=== PATIENT | female | born 1990 | race Caucasian/White ===

== ENCOUNTER 2017-04-20 15:21 | Day surgery (SDC) | payer OTHER ==
[2017-04-20] VITALS (19 sets, daily range): BP systolic 56–112; BP diastolic 31–62; PULSE 94–126; RESP 10–20; Ht 157.5 cm; Wt 65.9 kg
[~2017-04-20] VITALS: Ht 157.5 cm; Wt 65.9 kg
[~2017-04-20 15:21] MED LIST: CLINDAMYCIN 600 MG/50 ML D5W IVPB IVPB ONE
[2017-04-20] MEDS ORDERED: PROPOFOL 20 ML ONE (17:28)
[2017-04-20] MEDS ORDERED: ROCURONIUM 50 MG INJ ONE (17:28)
[2017-04-20] MEDS ORDERED: NEOSTIGMINE 3 MG/3 ML SYRINGE ONE (17:28)
[2017-04-20] MEDS ORDERED: GLYCOPYRROLATE 0.4 MG INJ ONE (17:28)
[2017-04-20] MEDS ORDERED: CEFAZOLIN 1 GM INJ ONE (17:28)
[2017-04-20] MEDS ORDERED: MIDAZOLAM 1 MG/ML 2 ML INJ ONE (17:29)
[2017-04-20] MEDS ORDERED: ONDANSETRON 4 MG INJ ONE (17:29)
[2017-04-20] MEDS ORDERED: FENTAnyl 50 MCG/ML VIAL ONE (17:29)
[2017-04-20] MEDS ORDERED: DEXAMETHASONE 4 MG/ML 1 ML INJ ONE (17:30)
[2017-04-20] MEDS ORDERED: ROPIVACAINE 0.5 % 30 ML VIAL ONE (17:30)
[2017-04-20] MEDS ORDERED: POLYMYXIN/BACITRACIN 1L IRRIG ONE (18:11)
[2017-04-20] MEDS ORDERED: morphine 2 MG INJ IV PRN (18:30)
--- NOTE | 2017-04-20 18:30 | HPN ---
Date/Time of Note Date/Time of Note DATE: 04/20/17 TIME: 18:17 Interval H&P Admission Note Pt. seen H&P reviewed: No system changes THAD MENDEZ MD Apr 20, 2017 18:30
[2017-04-20] MEDS ORDERED: DIPHENHYDRAMINE 50 MG INJ IV PRN (19:30)
[2017-04-20] MEDS ORDERED: TRIMETHOBENZAMIDE 100 MG/ML VIAL IM PRN (19:30)
[2017-04-20] MEDS ORDERED: MEPERIDINE 25 MG INJ IV PRN (19:30)
[2017-04-20] MEDS ORDERED: EPHEDrine SULFATE 50 MG/5 ML SYG IV PRN (19:30)
[2017-04-20] MEDS ORDERED: MIDAZOLAM 1 MG/ML 2 ML INJ IV PRN (19:30)
[2017-04-20] MEDS ORDERED: FENTAnyl 50 MCG/ML VIAL IV PRN ×3 (19:30)
[2017-04-20] MEDS ORDERED: ONDANSETRON 4 MG INJ IV PRN (19:30)
[2017-04-20] MEDS ORDERED: HYDROmorphONE (0.2 MG/ML) 10ML SYG IV PRN ×3 (19:30)
[2017-04-20] MEDS ORDERED: ALBUTEROL 0.083% (NEB) 2.5 MG/3 ML AMP HHN PRN (19:30)
[2017-04-20] MEDS ORDERED: IPRATROPIUM (NEB) 0.5 MG/2.5 ML AMP HHN PRN (19:30)
[2017-04-20] MEDS ORDERED: OXYCODONE/ACETAMINOPHEN (5/325) TAB PO PRN ×2 (19:30)
[2017-04-20] MEDS ORDERED: hydrALAzine 20 MG INJ IV PRN (19:30)
[2017-04-20] MEDS ORDERED: LABETALOL HCL 20MG INJ IV PRN (19:30)
[2017-04-20] MEDS ORDERED: KETOROLAC 30 MG INJ ONE (19:30)
[2017-04-20] MEDS ORDERED: METOCLOPRAMIDE 10 MG INJ ONE (20:36)
[2017-04-20] MEDS ORDERED: NEOMYC/POLYMYX/BACIT 30 GM OINT ONE (20:43)
[2017-04-20] MEDS ORDERED: PHENYLephrine (100 MCG/ML) 5ML SYG ONE (21:12)
--- NOTE | 2017-04-20 21:24 | OPR ---
Date/Time of Note Date/Time of Note DATE: 04/20/17 TIME: 21:19 Operative Report Free Text/Dictation Operation Date: 04/20/2017 POSTOPERATIVE DIAGNOSES: 1. Right first and second cuneiform instability/dislocation 2. Right Lisfranc first and second tarsometatarsal joint subluxation. POSTOPERATIVE DIAGNOSIS: 1. Right first and second cuneiform instability/dislocation 2. Right Lisfranc joint dislocation of the first and second tarsometatarsal joints. OPERATION PERFORMED: 1. Right first and second cuneiform instability/dislocation open reduction internal fixation 2. Right foot Lisfranc first and second tarsometatarsal joint open reduction internal fixation. SURGEON: Jeremy Mendez MD ANESTHESIOLOGIST: Dr. Randi MD ANESTHESIA: General with popliteal block. TOURNIQUET TIME: 83 minutes at 250 mmHg. ESTIMATED BLOOD LOSS: 10 mL. COMPLICATIONS: None. IMPLANTS: 2 [email or web address] Lisfranc 3.5 mm screw INDICATIONS: The patient is a 26-year-old female who sustained a right first and second cuneiform instability/dislocation and a Lisfranc fracture joint dislocation approximately 3 weeks ago. Given the patient's x-ray findings, the patient was indicated for open reduction and internal fixation to stabilize the Lisfranc joint and first and second cuneiform joint. RISK NOTE: The patient was explained risks and benefits of surgery in the patient's [employer] language including, but not limited to infection, bleeding, loss of limb, loss of life, need for future surgery, risk of injury to blood vessels, nerves, ligaments, tendons, risk of need for future surgery. Patient acknowledges these risks and signs surgical consent form. OPERATIVE NOTE: The patient was met in the preoperative holding area and operative side was confirmed with both patient and via consent. The patient was then given preoperative regional anesthesia and brought back to the operative theater, placed supine on operative table, and given preoperative antibiotics. The patient was then prepped and draped in normal sterile fashion and timeout was taken. All parties in the room agreed to the correct patient, extremity, and procedure. Tourniquet had been placed nonsterilely initially, and then after the timeout was taken, an Esmarch was brought up and tourniquet was inflated to 250 mmHg. Initially, incision was taken down in the interval between the first and second MTP joints and first and second metatarsals. Incision was brought down with care to avoid any injury to any neurovascular structures, and the neovasculature structures were retracted and protected throughout the case. The Lisfranc joint was identified and shown to be unstable on palpation, as well as the Right first and second cuneiform instability was identified. Once the fracture site was identified, the fracture was then reduced and hematoma was removed. The fracture was then reduced and held in position with several K- wires. Once this joint was shown to be well reduced in AP and lateral fluoroscopic position, attention was then turned to the Lisfranc joint. The intermetatarsal space was debrided of any debris and loose cartilage from the injury, and the second metatarsal base was then reduced to the first cuneiform using a large reduction clamp, and then the K-wire was initially placed followed by a drill and then a 3.7 mm noncannulated screw was placed from the base of the first cuneiform to the second metatarsal base. This is shown to be excellently reduced and the space and interval in the first tarsometatarsal joint was reduced. There was still shown to be instability of the 1/2 intercuneiform joint which was held in reduction and then a 3.7 mm screw was placed across the 1/2 cuneiforms to maintain stability. All wounds were irrigated thoroughly. There was determined to be no intercuneiform instability after fixation and none of the remaining metatarsals were deemed unstable. The wounds were irrigated thoroughly and closed in layers with 2-0 Vicryl followed by 3-0 Monocryl and 4-0 nylon in vertical mattress fashion. Wounds were then dressed with Xeroform, triple antibiotic ointment, 4 x 4's, ABDs, and placed in a well-padded short leg splint. All sponge and needle counts were correct. The patient was taken to PACU in stable condition. Surgeon see signature line JEREMY MENDEZ MD Apr 20, 2017 21:24
--- NOTE | 2017-04-21 14:37 | RADRPT ---
PROCEDURE: Intraoperative imaging of the right foot with fluoroscopy. CLINICAL INDICATION: Right foot pain. Intraoperative. TECHNIQUE: 20 images of the right foot were obtained in the operating room with an image intensifi er. No radiologist was in attendance. Fluoroscopy time is 106 seconds. COMPARISON: No prior study is available for comparison. FINDINGS: Images demonstrate surgical instruments overlying the right foot and fusion of the medial tarsal bon es with 2 screws. IMPRESSION: 1. Intraoperative imaging of the right foot. RPTAT: QQ .Osmin Izaguirre MD, MD Date Time Electronically viewed and signed by .Osmin Izaguirre MD, on 04/21/2017 14:37 .R/
== END 2017-04-20 22:36 | disposition home or self-care (01) ==
LOC: SDS 15:21
PROVIDERS: ATTEND Orthopaedic Surgery
DX: M25.374 Other instability, right foot (principal); S93.324D Dislocation of tarsometatarsal joint of right foot, subsequent encounter; X58.XXXD Exposure to other specified factors, subsequent encounter
CPT/HCPCS: 28615; 73630; 84703; J1100; J2250; J2370; J2405; J2795; J3010; Z7512; Z7610; J0690; J1885; J2175; J2710; J2765

== ENCOUNTER 2017-10-18 15:12 | Day surgery (SDC) | END 2017-10-18 20:15 | disposition home or self-care (01) ==